=== PATIENT | male | born 1955 | race Caucasian/White ===

== ENCOUNTER 2017-07-03 22:33 | Emergency (ER) | payer SELFPAY ==
[~2017-07-03] VITALS: Ht 172.7 cm; Wt 70.0 kg
[2017-07-03 23:50] LABS: HEMATOCRIT 45.7 % (39.0-50.0); IMMATURE GRANULOCYTES 0.5 % (0.0-1.0); MEAN CORPUSCULAR HGB 29.9 pG CALC (26.0-32.0); MEAN CORPUSCULAR HGB CONC 32.8 g/L CALC (32.0-36.0); NEUT# 4.76 thou/uL (1.82-7.42); RED BLOOD COUNT 5.02 mill/uL (4.70-6.10); RED CELL DISTRI WIDTH 13.4 % (11.5-15.5)
[2017-07-04 00:05] LABS: PROTHROMBIN TIME 10.7 SECONDS (9.0-12.5)
[2017-07-04 00:08] LABS: ALKALINE PHOSPHATASE 117 u/l (38-126); ANION GAP 15 (6-22 (CALC)); BILIRUBIN, TOTAL 0.7 mg/dL (0.0-1.4); BUN 10 mg/dL (8-23); BUN/CREATININE RATIO 14 (12-20 (CALC)); CALCIUM 9.2 mg/dL (8.4-10.2); CARBON DIOXIDE 25 mmol/l (22-30); CHLORIDE 106 mmol/l (95-108); CREATININE 0.7 mg/dL (0.7-1.3); GFR > 60 ML/MIN (>=60 (CALC)); GFR FOR AFR.AMER. > 60 ML/MIN (>=60 (CALC)); GLUCOSE 134 mg/dL (82-115); POTASSIUM 3.9 mmol/l (3.5-5.1); SGOT/AST 30 u/l (19-48); SGPT/ALT 29 u/l (11-66); SODIUM 142 mmol/l (137-146); TOTAL PROTEIN 6.9 g/dL (6.3-8.2)
[2017-07-04] MEDS ORDERED: CODEINE/GUAIFEN1 SOL PO (01:07)
[2017-07-04] MEDS ORDERED: CIPROFLOXACN500 MG PO (01:07)
[2017-07-04 01:09] VITALS: BP 120/77
== END 2017-07-04 01:20 | disposition home or self-care (01) | DRG 203 ==
LOC: ED 22:33
PROVIDERS: Emergency Medicine
DX: J40 Bronchitis, not specified as acute or chronic (principal); R07.89 Other chest pain; F17.220 Nicotine dependence, chewing tobacco, uncomplicated; J44.9 Chronic obstructive pulmonary disease, unspecified

== ENCOUNTER 2017-07-19 01:16 | Emergency (ER) | payer SELFPAY ==
[~2017-07-19] VITALS: Ht 170.2 cm; Wt 65.0 kg
[~2017-07-19 01:16] MED LIST: CIPROFLOXACN500 MG PO; CODEINE/GUAIFEN1 SOL PO
--- NOTE | 2017-07-19 01:41 | NUR ---
BREATHING TREATMENT GIVEN BACK TO BACK. BREATHING TECH FOR GOOD DEPOSITION TO THE LUNGS.
[2017-07-19] MEDS ORDERED: COMBIVENT RESPIMAT IN (01:47)
[2017-07-19] MEDS ORDERED: ALBUTEROL SUL0.083 % IN (01:47)
[2017-07-19] MEDS ORDERED: ACCOLATE20 MG PO (01:47)
[2017-07-19] MEDS ORDERED: SYMBICORT1 AE1 IN (01:48)
[2017-07-19 02:17] LABS: HEMATOCRIT 48.1 % (39.0-50.0); HEMOGLOBIN 15.8 g/dl (14.0-18.0); IMMATURE GRANULOCYTES 0.8 % (0.0-1.0); MEAN CELL VOLUME 89.9 fL CALC (80.0-100.0); MEAN CORPUSCULAR HGB 29.5 pG CALC (26.0-32.0); MEAN CORPUSCULAR HGB CONC 32.8 g/L CALC (32.0-36.0); NEUT# 5.59 thou/uL (1.82-7.42); RED BLOOD COUNT 5.35 mill/uL (4.70-6.10); RED CELL DISTRI WIDTH 13.2 % (11.5-15.5)
[2017-07-19 02:22] LABS: ALBUMIN 4.3 g/dL (3.2-5.0); ALKALINE PHOSPHATASE 124 u/l (38-126); ANION GAP 21 (6-22 (CALC)); BILIRUBIN, TOTAL 0.5 mg/dL (0.0-1.4); BUN 8 mg/dL (8-23); BUN/CREATININE RATIO 11 (12-20 (CALC)); CALCIUM 9.2 mg/dL (8.4-10.2); CARBON DIOXIDE 23 mmol/l (22-30); CHLORIDE 108 mmol/l (95-108); CREATININE 0.7 mg/dL (0.7-1.3); GFR > 60 ML/MIN (>=60 (CALC)); GFR FOR AFR.AMER. > 60 ML/MIN (>=60 (CALC)); GLUCOSE 105 mg/dL (82-115); POTASSIUM 3.9 mmol/l (3.5-5.1); SGOT/AST 34 u/l (19-48); SODIUM 147 mmol/l (137-146); TOTAL PROTEIN 7.4 g/dL (6.3-8.2)
[2017-07-19 02:23] LABS: INTERNATIONAL NORMALIZED RATIO 0.9 RATIO (0.7-1.3); PROTHROMBIN TIME 10.5 SECONDS (9.0-12.5)
[2017-07-19 02:24] LABS: SGPT/ALT 32 u/l (11-66)
[2017-07-19 02:35] LABS: MYOGLOBIN 70 ng/mL (0 - 121)
[2017-07-19] MEDS ORDERED: LORTAB 5/3255 MG PO (03:48)
[2017-07-19] MEDS ORDERED: MOTRIN800 MG PO (03:48)
[2017-07-19] MEDS ORDERED: PREDNISONE50 MG PO (03:49)
[2017-07-19 04:02] VITALS: BP 101/62
== END 2017-07-19 04:26 | disposition home or self-care (01) | DRG 313 ==
LOC: ED 01:16
PROVIDERS: Emergency Medicine
DX: R07.89 Other chest pain (principal); J44.9 Chronic obstructive pulmonary disease, unspecified